=== PATIENT | female | born 1960 | race Caucasian/White ===

== ENCOUNTER → 2017-04-10 | Outpatient (CLI) | payer BC ==
--- NOTE | 2017-04-10 14:17 | WWHP ---
DATE OF SERVICE: 04/10/2017 CHIEF COMPLAINT: The patient is here for her routine gynecologic exam and mammogram. HPI: This is a 56-year-old G4, P2-0-2-3 with an LMP of 2012. The patient previously saw Dr. Dickens for her gynecologic care. It has been about 2 years since her last pelvic exam but about 3 years since her last Pap smear. The patient is without gynecologic complaints and denies any postmenopausal bleeding. She has had occasional hot flashes, but these are much improved from the past. PAST MEDICAL HISTORY: Seasonal allergies. MEDICATIONS: 1. Ludivina D [id number] 1 daily p.r.n. 2. Multivitamin daily. 3. Fish oil supplement 2 per day. 4. Calcium supplement 2 daily. Allergies to AMOXICILLIN which caused a rash. PAST SURGICAL HISTORY: Bilateral breast implants at age 44, neck surgery at age 19 following an injury, colonoscopy multiple times and her most recent one was about 2014. PAST OB HISTORY: Two vaginal deliveries, one was with a set of twins and they were at full term. She had 2 spontaneous abortions. 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 SOCIAL HISTORY: She smokes about 10 cigarettes per day and rolls them herself. She has about 2 to 4 alcoholic drinks per day and denies drug use. She is retired and previously worked for [employer]. 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 She is and is not seeing anybody at this time and is not sexually active. FAMILY HISTORY: Several people have colon cancer including mother, grandmother and great grandparents. She denies family history of cancer of the breast, uterus or ovaries. Father had an NC, maternal grandmother had coronary artery disease. Father also has diabetes. REVIEW OF SYSTEMS: Weight has been stable. RESPIRATORY: Occasional allergy symptoms. She denies cardiac or GI problems. PHYSICAL EXAM: Blood pressure 101/70. Height 5 feet 1 inch. Weight 107 pounds. Temperature 98.2, pulse 67. This is a well-developed, well-nourished white female who is alert and oriented x3 in no acute distress. HEENT is within normal limits. NECK: Supple without mass or thyromegaly. CHEST AND LUNGS: Clear to auscultation. HEART: Regular rate and rhythm. Breasts are consistent with bilateral implants. There are no masses or tenderness. Axillary exam is negative for adenopathy. BACK: Negative for CVA tenderness. ABDOMEN: Soft, nontender, without palpable masses. PELVIC EXAM: External genitalia reveals minimal atrophy without lesions. Cervix and vagina also reveal minimal atrophy without lesions. There is no evidence of prolapse. The uterus is midposition, nongravid size and nontender. There are no palpable adnexal masses or tenderness. Rectovaginal exam is negative for mass or tenderness and is negative for occult blood. EXTREMITIES: Nontender. IMPRESSION: A 56-year-old menopausal female with normal gynecologic exam. PLAN: 1. Pap smear was performed. 2. Self breast examination was discussed. 3. Mammogram will be done today. 4. Osteoporosis prevention was discussed. 5. I have recommended that she try to quit smoking and we have discussed several reasons why she should do this. 6. She will return in one year.
--- NOTE | 2017-04-11 07:25 | MM ---
Reason for exam: screening (asymptomatic). Last mammogram was performed 1 year and 10 months ago. History: Patient is postmenopausal. Saline implants in both breasts, 2004. Took hormonal contraceptives for 15 years beginning at age 22. Physical Findings: Nurse did not find any significant physical abnormalities on exam. MG Screening Mammo Implant/CAD Bilateral CC, MLO, and ID view(s) were taken. Prior study comparison: June 14, 2015, bilateral MG diagnostic mammo w CAD KATHIA. June 10, 2014, bilateral MG diagnostic mammo w CAD KATHIA. June 05, 2013, CAD bilateral diagnostic mammogram. The breast tissue is heterogeneously dense. This may lower the sensitivity of mammography. There is no discrete abnormality. Bilateral implants. ASSESSMENT: Negative, BI-RAD 1 RECOMMENDATION: Routine screening mammogram of both breasts in 1 year.
== END | disposition home or self-care (01) ==
LOC: WWCWWP 09:12
PROVIDERS: ATTEND Obstetrics & Gynecology
DX: Z12.31 Encounter for screening mammogram for malignant neoplasm of breast (principal)

== ENCOUNTER → 2018-09-02 | Outpatient (CLI) | payer BC ==
[2018-09-02 13:47] VITALS: BP 107/74; PULSE 99; TEMP 97.8; BMI 17.4
--- NOTE | 2018-09-02 14:17 | P.HPOB ---
History of Present Illness H&P Date: 09/02/18 Chief Complaint: The patient is here for her routine gynecologic exam and mammogram. This is a 58-year-old with an LMP of 2013. The patient is without gynecologic complaints and denies any postmenopausal bleeding. Review of Systems The patient has lost 15 pounds over the 17 months. She denies respiratory, cardiac, or G.I. problems. Past Medical History Additional Past Medical History / Comment(s): Seasonal allergies. 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 History of Any Multi-Drug Resistant Organisms: None Reported Past Surgical History: Breast Surgery (Bilateral implants age 44), Orthopedic Surgery (Neck surgery following injury at age 19) Additional Past Surgical History / Comment(s): Multiple colonoscopies and the most recent was in 2014. Past Psychological History: No Psychological Hx Reported Smoking Status: Current every day smoker (10 cigarettes per day, self rolled) Past Alcohol Use History: None Reported Additional Past Alcohol Use History / Comment(s): Previous daily alcohol intake until November 2017 when she had a traffic violation for impaired driving. She denies alcohol use since November 2017. Past Drug Use History: None Reported Additional History: She is and is not seeing anybody at this time. She works at the [employer] in [place]. Her son is mentally impaired. - Past Family History Mother Family Medical History: Cancer (colon cancer) Additional Family Medical History / Comment(s): Grandmother and great grandparents had colon cancer. Grandmother had CAD. Father Family Medical History: Diabetes Mellitus, Myocardial Infarction ([place]) Medications and Allergies Home Medications Medication Instructions Recorded Confirmed Type Calcium Carbonate [Calcium] 600 mg PO 09/02/18 History Fexofenadine/Pseudoephedrine PO DAILY 09/02/18 History [Ludivina-D 24 Hour Tablet] Fish Oil/Dha/Epa [Fish Oil 1,200 cap PO DAILY 09/02/18 History mg Fish Oil] Multivitamin [Multivitamins Adult tab PO DAILY 09/02/18 History Gummies] Allergies Allergy/AdvReac Type Severity Reaction Status Date / Time amoxicillin AdvReac Intermediate Rash/Hives Unverified 09/02/18 13:43 Exam Vital Signs Temp Pulse BP 09/02/18 13:43 97.8 F 99 107/74 Intake and Output 1009/02/18 09/02/18 22:59 06:59 14:59 Other: Weight 41.73 kg Height 5'1", BMI 17.4. This is a well-developed well-nourished thin white female who is alert and oriented times 3 in no acute distress. HEENT: Within normal limits. NECK: Supple without mass or thyromegaly. CHEST AND LUNGS: Clear to auscultation. HEART: Regular rate and rhythm. BREASTS: Are without mass or discharge. They are consistent with bilateral implants. AXILLARY EXAM: Negative for adenopathy. BACK: Negative for CVA tenderness. ABDOMEN: Soft, nontender, without palpable masses. PELVIC EXAM: Normal external genitalia with mild atrophy. Cervix and vagina appear normal mild atrophy. There is no unusual discharge. There is no evidence of prolapse. The uterus is midposition, nongravid size and nontender. There are no palpable adnexal masses or tenderness. RECTAL EXAM: rectovaginal exam is negative for mass or tenderness and is negative for occult blood. EXTREMITIES: Nontender. IMPRESSION: 1. 58-year-old menopausal female with normal gynecologic exam. 2. Bilateral breast implants with normal breast exam. PLAN: 1. pap Smear was deferred since she had a normal one last year. 2. Self breast awareness was discussed with the patient. 3. Screening mammogram will be done today. 4. Osteoporosis prevention was discussed. 5. The patient is scheduled for screening colonoscopy next week. 6. She will return in one year.
--- NOTE | 2018-09-03 11:50 | MM ---
Reason for exam: screening (asymptomatic). Last mammogram was performed 1 year and 5 months ago. History: Patient is postmenopausal. Saline implants in both breasts, 2004. Took hormonal contraceptives for 15 years beginning at age 22. Physical Findings: A clinical breast exam by your physician is recommended on an annual basis and results should be correlated with mammographic findings. MG 3D Screen Mammo Imp/Cad Bilateral CC and MLO view(s) were taken. Prior study comparison: April 10, 2017, bilateral MG screening mammo implant/CAD. June 14, 2015, bilateral MG diagnostic mammo w CAD KATHIA. The breast tissue is heterogeneously dense. This may lower the sensitivity of mammography. Finding: There is a 3 mm high density, oval mass in the 3 o'clock position of the left breast consistent with probable node. New finding since April 10, 2017 and June 14, 2015. ASSESSMENT: Incomplete: need additional imaging evaluation, BI-RAD 0 RECOMMENDATION: Ultrasound of the left breast. [facility] will attempt to contact patient to return for ultrasound.
== END ==
LOC: WWCWWP 13:23
PROVIDERS: ATTEND Obstetrics & Gynecology
DX: Z12.31 Encounter for screening mammogram for malignant neoplasm of breast (principal); Z98.82 Breast implant status
CPT/HCPCS: 77063; 77067

== ENCOUNTER → 2018-09-04 | Outpatient (CLI) | payer BC ==
--- NOTE | 2018-09-04 10:36 | USB ---
Reason for exam: additional evaluation requested from abnormal screening. History: Patient is postmenopausal. Saline implants in both breasts, 2003. Took hormonal contraceptives for 15 years beginning at age 22. Physical Findings: Nurse Summary: 0.5cm movable nodule (nurse dw). US Breast Workup Limited LT Left limited breast ultrasound including focal area of concern, retroareolar and axilla demonstrates a 0.5 x 0.2 x 0.6cm questionable valve at 1 o'clock. These results were verbally communicated with the patient and result sheet given to the patient on 09/04/18. ASSESSMENT: Negative, BI-RAD 1 RECOMMENDATION: Return to routine screening mammogram schedule for both breasts.
== END | disposition home or self-care (01) ==
LOC: RADUSWWP 08:49
PROVIDERS: ATTEND Obstetrics & Gynecology
DX: R92.8 Other abnormal and inconclusive findings on diagnostic imaging of breast (principal)

== ENCOUNTER → 2019-09-30 | Outpatient (CLI) | payer BC ==
[2019-09-30 09:07] VITALS: BP 134/93; PULSE 101; RESP 18; TEMP 98; BMI 18.1
--- NOTE | 2019-09-30 09:46 | P.HPOB ---
History of Present Illness H&P Date: 09/30/19 Chief Complaint: The patient is here for her routine gynecologic exam and ma mmogram. This is a 59-year-old with an LMP of 2013. The patient is without gynecologic complaints and denies any postmenopausal bleeding. Review of Systems The patient has gained 4 pounds over the last year. She denies respiratory, cardiac, or G.I. problems. The patient fractured her wrist after a fall. Past Medical History Additional Past Medical History / Comment(s): Seasonal allergies. Chronic back problems. 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 History of Any Multi-Drug Resistant Organisms: None Reported Past Surgical History: Breast Surgery, Orthopedic Surgery Additional Past Surgical History / Comment(s): Bilateral breast implants age 44. Neck surgery following an injury at age 19. Multiple colonoscopies and the most recent was in 2014. Past Psychological History: No Psychological Hx Reported Smoking Status: Current every day smoker (10 cigarettes per day, self rolled.) Past Alcohol Use History: Occasional (3 per week) Additional Past Alcohol Use History / Comment(s): Previous daily alcohol intake until November 2017 when she had a traffic violation for impaired driving. She denies alcohol use since November 2017. Past Drug Use History: None Reported Additional History: She is and is not seeing anybody at this time. She works at [employer] in [place]. Her son was mentally impaired and murdered in 2019. - Past Family History Mother Family Medical History: Cancer Additional Family Medical History / Comment(s): Colon cancer. Grandmother and great grandparents had colon cancer. Grandmother had CAD. Father Family Medical History: Diabetes Mellitus, Myocardial Infarction ([place]) Medications and Allergies Home Medications Medication Instructions Recorded Confirmed Type Calcium Carbonate [Calcium] 600 mg PO DAILY 09/02/18 09/30/19 History Fexofenadine/Pseudoephedrine 1 tab PO DAILY PRN 09/02/18 09/30/19 History [Ludivina-D 24 Hour Tablet] Fish Oil/Dha/Epa [Fish Oil 1,200 1 cap PO DAILY 09/02/18 09/30/19 History mg Fish Oil] Multivitamin [Multivitamins Adult 1 tab PO DAILY 09/02/18 09/30/19 History Gummies] Allergies Allergy/AdvReac Type Severity Reaction Status Date / Time amoxicillin AdvReac Intermediate Rash/Hives Unverified 09/30/19 09:08 Exam Vital Signs Temp Pulse Resp BP 09/30/19 09:03 98.0 F 101 H 18 134/93 Intake and Output 09/29/19 09/30/19 09/30/19 22:59 06:59 14:59 Other: Weight 43.545 kg Height 5 feet 1 inch, weight 96 pounds, BMI 18.1. This is a well-developed well-nourished white female who is alert and oriented times 3 in no acute distress. HEENT: Within normal limits. NECK: Supple without mass or thyromegaly. CHEST AND LUNGS: Clear to auscultation. HEART: Regular rate and rhythm. BREASTS: Are without mass or discharge. Exam is consistent with bilateral breast implants. AXILLARY EXAM: Negative for adenopathy. BACK: Negative for CVA tenderness. ABDOMEN: Soft, nontender, without palpable masses. PELVIC EXAM: Normal external genitalia with mild to moderate atrophy. Cervix and vagina appear normal is mild to moderate atrophy. There is no unusual discharge. There is no evidence of prolapse. The uterus is midposition, nongravid size and nontender. There are no palpable adnexal masses or tenderness. RECTAL EXAM: Rectovaginal exam is negative for mass or tenderness and is negative for occult blood. EXTREMITIES: Nontender. IMPRESSION: 1. 59-year-old menopausal female with normal gynecologic exam. 2. Recent wrist fracture following a fall. Increased risk for osteoporosis. PLAN: 1. Pap smear was performed. 2. Self breast awareness was discussed with the patient. 3. Screening mammogram will be done today. 4. Osteoporosis prevention was discussed. I have stressed the importance of adequate calcium, vitamin D and regular exercise. Recommended amounts of calcium and vitamin D were also discussed. I have recommended bone density screening because of her history of a wrist fracture. The order slip was given to the patient for this. 5. She was advised to return in one year for her annual well woman exam.
--- NOTE | 2019-09-30 13:38 | MM ---
Reason for exam: screening (asymptomatic). Last mammogram was performed 1 year and 1 month ago. History: Patient is postmenopausal. Saline implants in both breasts, 2004. Took hormonal contraceptives for 15 years beginning at age 22. Physical Findings: A clinical breast exam by your physician is recommended on an annual basis and results should be correlated with mammographic findings. MG 3D Screen Mammo Imp/Cad Bilateral CC, MLO, and ID view(s) were taken. Prior study comparison: September 02, 2018, bilateral MG 3d screen mammo imp/cad. April 10, 2017, bilateral MG screening mammo implant/CAD. The breast tissue is extremely dense which could obscure a lesion on mammography. Benign appearing bilateral calcifications. No suspicious abnormality. Bilateral retropectoral saline implants. No significant changes when compared with prior studies. ASSESSMENT: Benign, BI-RAD 2 RECOMMENDATION: Routine screening mammogram of both breasts in 1 year.
== END | disposition home or self-care (01) ==
LOC: WWCWWP 08:54
PROVIDERS: ATTEND Obstetrics & Gynecology
DX: Z12.31 Encounter for screening mammogram for malignant neoplasm of breast (principal); Z98.82 Breast implant status
CPT/HCPCS: 77063; 77067

== ENCOUNTER 2020-07-18 11:43 | Emergency (ER) | payer BC ==
[2020-07-18 12:03] VITALS: RESP 18; TEMP 98
[2020-07-18] MEDS ORDERED: SODIUM CHLORIDE 0.9% 1,000 ML IV STA (12:15)
[2020-07-18 13:03] LABS: Basophils # (A) 0.1 k/uL (0-0.2); Basophils % (A) 1 %; Eosinophils # (A) 0.2 k/uL (0-0.7); Eosinophils % (A) 3 %; HCT 43.1 % (34.0-46.0); HGB 14.1 gm/dL (11.4-16.0); Lymphocytes # (A) 2.3 k/uL (1.0-4.8); Lymphocytes % (A) 30 %; MCHC 32.8 g/dL (31.0-37.0); MCV 94.6 fL (80.0-100.0); Mean Platelet Volume 7.2; Monocytes # (A) 0.3 k/uL (0-1.0); Monocytes % (A) 4 %; Neutrophils # (A) 4.7 k/uL (1.3-7.7); Neutrophils % (A) 62 %; Platelet Count 204 k/uL (150-450); RBC 4.56 m/uL (3.80-5.40); RDW 12.4 % (11.5-15.5); WBC 7.6 k/uL (3.8-10.6)
[2020-07-18 13:10] LABS: Amorphous Sediment,Urine Rare /hpf; Appearance,Urine Turbid (Clear); Bacteria,Urine Rare /hpf; Bilirubin,Urine Negative (Negative); Blood,Urine Moderate (Negative); Color,Urine Yellow; Glucose,Urine (UA) Negative (Negative); Ketones,Urine Negative (Negative); Leukocyte Esterase,Urine Negative (Negative); Mucus,Urine Rare /hpf; Nitrite,Urine Negative (Negative); PH, Urine 7.5 (5.0-8.0); Protein,Urine Negative (Negative); RBC,Urine 18 /hpf (0-5); Specific Gravity,Urine 1.017 (1.001-1.035); Squamous Epithelial Cell,Urine 1 /hpf (0-4); Urobilinogen,Urine <2.0 mg/dL (<2.0)
[2020-07-18 13:13] LABS: ALT 20 U/L (4-34); AST 40 U/L (14-36); African American GFR (CKD) >90 (>60 ml/min/1.73 sqM); Albumin 4.6 g/dL (3.5-5.0); Alkaline Phosphatase 69 U/L (38-126); Amylase 56 U/L (30-110); Anion Gap 7 mmol/L; Blood Urea Nitrogen 16 mg/dL (7-17); Calcium 9.7 mg/dL (8.4-10.2); Carbon Dioxide 26 mmol/L (22-30); Chloride 105 mmol/L (98-107); Glucose 120 mg/dL (74-99); Non-African American GFR(CKD) >90 (>60 ml/min/1.73 sqM); Sodium 138 mmol/L (137-145); Total Bilirubin 1.1 mg/dL (0.2-1.3); Total Protein 7.1 g/dL (6.3-8.2)
--- NOTE | 2020-07-18 13:59 | ED ---
General Adult HPI - General Chief complaint: Abdominal Pain Stated complaint: Light headed, side pain Time Seen by Provider: 07/18/20 12:12 Source: patient, RN notes reviewed Mode of arrival: ambulatory Limitations: no limitations - History of Present Illness Initial comments: 60-year-old female with a past medical history of seasonal ALLERGIES, chronic back problems presents to the emergency room for a chief complaint of abdominal discomfort. Patient reports that about 3 days ago she started to have nausea. Patient states that during an episode associated started abdominal cramping. She also had diarrhea starting yesterday. Patient has had chills and just not felt well overall. She is able to tolerate oral intake. Patient is concerned she could have Covid. She does not have any exposures but was by her friend that this could be a symptom of Covid. Patient has no other complaints at this time including shortness of breath, chest pain, abdominal pain, vomiting, headache, or visual changes. - Related Data Home Medications Medication Instructions Recorded Confirmed Calcium Carbonate [Calcium] 600 mg PO DAILY 09/02/18 09/30/19 Fexofenadine/Pseudoephedrine 1 tab PO DAILY PRN 09/02/18 09/30/19 [Ludivina-D 24 Hour Tablet] Fish Oil/Dha/Epa [Fish Oil 1,200 1 cap PO DAILY 09/02/18 09/30/19 mg Fish Oil] RX: Multivitamin [Multivitamins 1 tab PO DAILY 09/02/18 09/30/19 Adult Gummies] Previous Rx's Medication Instructions Recorded Ondansetron [Zofran ODT] 4 mg PO Q8HR PRN #15 tab 07/18/20 Allergies Allergy/AdvReac Type Severity Reaction Status Date / Time amoxicillin AdvReac Intermediate Rash/Hives Unverified 09/30/19 09:08 Review of Systems ROS Statement: Those systems with pertinent positive or pertinent negative responses have been documented in the HPI. ROS Other: All systems not noted in ROS Statement are negative. Past Medical History Additional Past Medical History / Comment(s): Seasonal allergies. Chronic back problems. History of Any Multi-Drug Resistant Organisms: None Reported Past Surgical History: Breast Surgery, Orthopedic Surgery Additional Past Surgical History / Comment(s): Bilateral breast implants age 44. Neck surgery following an injury at age 19. Multiple colonoscopies and the most recent was in 2014. Past Psychological History: No Psychological Hx Reported Past Alcohol Use History: Occasional Past Drug Use History: None Reported - Past Family History Mother Family Medical History: Cancer Additional Family Medical History / Comment(s): Colon cancer. Grandmother and great grandparents had colon cancer. Grandmother had CAD. Father Family Medical History: Diabetes Mellitus, Myocardial Infarction ([place]) General Exam Limitations: no limitations General appearance: alert, in no apparent distress Head exam: Present: atraumatic, normocephalic, normal inspection Eye exam: Present: normal appearance, PERRL, EOMI. Absent: scleral icterus, conjunctival injection, periorbital swelling ENT exam: Present: normal exam, mucous membranes moist Neck exam: Present: normal inspection, full ROM. Absent: tenderness, meningismus, lymphadenopathy Respiratory exam: Present: normal lung sounds bilaterally. Absent: respiratory distress, wheezes, rales, rhonchi, stridor Cardiovascular Exam: Present: regular rate, normal rhythm, normal heart sounds. Absent: systolic murmur, diastolic murmur, rubs, gallop, clicks GI/Abdominal exam: Present: soft, normal bowel sounds. Absent: distended, tenderness, guarding, rebound, rigid Neurological exam: Present: alert Course Vital Signs 07/18/20 11:59 Temperature 98.0 F Pulse Rate 98 Respiratory 18 Rate Blood Pressure 117/78 O2 Sat by Pulse 996 H Oximetry Medical Decision Making - Medical Decision Making Vitals are stable. CBC CMP unremarkable. Patient does not have any abdominal tenderness whatsoever. Urinalysis does show 18 red blood cells. I did discuss this with patient and she will follow-up with her doctor for repeat urinalysis. Patient is requesting testing for Covid. States that is actually the reason she is here. Patient will follow up on these results. She will follow-up with her doctor and return for any worsening symptoms. - Lab Data Result diagrams: 07/18/20 12:41 07/18/20 12:41 Lab Results 07/18/20 07/18/20 07/18/20 Range/Units 12:41 12:41 12:41 WBC 7.6 (3.8-10.6) k/uL RBC 4.56 (3.80-5.40) m/uL Hgb 14.1 (11.4-16.0) gm/dL Hct 43.1 (34.0-46.0) % MCV 94.6 (80.0-100.0) fL MCH 31.0 (25.0-35.0) pg MCHC 32.8 (31.0-37.0) g/dL RDW 12.4 (11.5-15.5) % Plt Count 204 (150-450) k/uL Neutrophils % 62 % Lymphocytes % 30 % Monocytes % 4 % Eosinophils % 3 % Basophils % 1 % Neutrophils # 4.7 (1.3-7.7) k/uL Lymphocytes # 2.3 (1.0-4.8) k/uL Monocytes # 0.3 (0-1.0) k/uL Eosinophils # 0.2 (0-0.7) k/uL Basophils # 0.1 (0-0.2) k/uL Sodium 138 (137-145) mmol/L Potassium 5.0 (3.5-5.1) mmol/L Chloride 105 (98-107) mmol/L Carbon Dioxide 26 (22-30) mmol/L Anion Gap 7 mmol/L BUN 16 (7-17) mg/dL Creatinine 0.52 (0.52-1.04) mg/dL Est GFR (CKD-EPI)AfAm >90 (>60 ml/min/1.73 sqM) Est GFR (CKD-EPI)NonAf >90 (>60 ml/min/1.73 sqM) Glucose 120 H (74-99) mg/dL Calcium 9.7 (8.4-10.2) mg/dL Total Bilirubin 1.1 (0.2-1.3) mg/dL AST 40 H (14-36) U/L ALT 20 (4-34) U/L Alkaline Phosphatase 69 (38-126) U/L Total Protein 7.1 (6.3-8.2) g/dL Albumin 4.6 (3.5-5.0) g/dL Amylase 56 (30-110) U/L Lipase 105 (23-300) U/L Urine Color Yellow Urine Appearance Turbid H (Clear) Urine pH 7.5 (5.0-8.0) Ur Specific [place] 1.017 (1.001-1.035) Urine Protein Negative (Negative) Urine Glucose (UA) Negative (Negative) Urine Ketones Negative (Negative) Urine Blood Moderate H (Negative) Urine Nitrite Negative (Negative) Urine Bilirubin Negative (Negative) Urine Urobilinogen <2.0 (<2.0) mg/dL Ur Leukocyte Esterase Negative (Negative) Urine RBC 18 H (0-5) /hpf Ur Squamous Epith Cells 1 (0-4) /hpf Amorphous Sediment Rare H (None) /hpf Urine Bacteria Rare H (None) /hpf Urine Mucus Rare H (None) /hpf Disposition Clinical Impression: Nausea vomiting and diarrhea, Hematuria Disposition: HOME SELF-CARE Condition: Fair Instructions (If sedation given, give patient instructions): Acute Diarrhea (ED), Acute Nausea and Vomiting (ED) Additional Instructions: Please drink plenty of fluids. Take Zofran as needed for nausea. Follow-up with your doctor in one to 2 days. Follow-up on-call with results. Return here to the emergency room if you have any worsening symptoms. Prescriptions: Ondansetron [Zofran ODT] 4 mg PO Q8HR PRN #15 tab PRN Reason: Nausea Is patient prescribed a controlled substance at d/c from ED?: No Referrals: Manda Dominguez MD [REFERRING] - 1-2 days Time of Disposition: 14:17
[2020-07-18 14:24] VITALS: BP 122/70; PULSE 82
== END 2020-07-18 14:23 | disposition home or self-care (01) ==
LOC: EC 11:43
DX: R11.2 Nausea with vomiting, unspecified (principal); R19.7 Diarrhea, unspecified; R31.9 Hematuria, unspecified; R10.9 Unspecified abdominal pain; Z20.828 Contact with and (suspected) exposure to other viral communicable diseases; Z98.82 Breast implant status
CPT/HCPCS: 36415; 80053; 82150; 83690; 85025; 81001; 99284; 96360; U0003

== ENCOUNTER → 2022-08-28 | Outpatient (CLI) | payer BC ==
[2022-08-28 10:57] VITALS: BP 119/75; PULSE 85; RESP 17; TEMP 98.2
--- NOTE | 2022-08-28 11:47 | P.HPOB ---
History of Present Illness H&P Date: 08/28/22 Chief Complaint: The patient is here for her routine gynecologic exam and ma mmogram. This is a 70-year-old 023 with an LMP of 2013. The patient is without gynecologic complaints and denies any postmenopausal bleeding. Review of Systems She has gained about 3 pounds over the past 3 years. She denies respiratory or cardiac problems. GI: Occasional constipation and occasional diarrhea. Past Medical History Additional Past Medical History / Comment(s): Seasonal allergies. Chronic back problems. History of Any Multi-Drug Resistant Organisms: None Reported Past Surgical History: Breast Surgery, Orthopedic Surgery Additional Past Surgical History / Comment(s): Bilateral breast implants age 44. Neck surgery following an injury at age 19. Multiple colonoscopies and the most recent was in 2014. Past Psychological History: No Psychological Hx Reported Smoking Status: Current every day smoker (About 5 cigarettes per day. She rolls her own.) Past Alcohol Use History: Occasional (About 10 beers per week.) Additional Past Alcohol Use History / Comment(s): Previous daily alcohol intake until November 2017 when she had a traffic violation for impaired driving. Past Drug Use History: None Reported Additional History: She is and is not seeing anybody at this time. She has not been sexually active since prior to 2019. She is currently not working outside of the home. Her son was mentally impaired and murdered in 2019. - Past Family History Mother Family Medical History: Cancer Additional Family Medical History / Comment(s): Colon cancer. Grandmother and great grandparents had colon cancer. Grandmother had CAD. Father Family Medical History: Diabetes Mellitus, Myocardial Infarction (MT) Medications and Allergies Home Medications Medication Instructions Recorded Confirmed Type Calcium Carbonate [Calcium] 600 mg PO DAILY 09/02/18 08/28/22 History Fexofenadine/Pseudoephedrine 1 tab PO DAILY PRN 09/02/18 08/28/22 History [Ludivina-D 24 Hour Tablet] Fish Oil/Dha/Epa [Fish Oil 1,200 1 cap PO DAILY 09/02/18 08/28/22 History mg Fish Oil] Multivitamin [Multivitamins Adult 1 tab PO DAILY 09/02/18 08/28/22 History Gummies] Ondansetron [Zofran ODT] 4 mg PO Q8HR PRN #15 tab 07/18/20 08/28/22 Rx L.acidoph,Paracasei, B.lactis 1 cap PO DAILY 08/28/22 08/28/22 History [Probiotic] Magnesium Oxide [Magnesium] 500 mg PO DAILY 08/28/22 08/28/22 History Allergies Allergy/AdvReac Type Severity Reaction Status Date / Time amoxicillin AdvReac Intermediate Rash/Hives Unverified 08/28/22 10:51 Exam Vital Signs Temp Pulse Resp BP Pulse Ox 08/28/22 10:54 98.2 F 85 17 119/75 100 Intake and Output 08/27/22 08/28/22 08/28/22 22:59 06:59 14:59 Other: Weight 44.906 kg Height 5 foot 1 inch, weight 99 pounds, BMI 18.7. This is a well-developed well-nourished white female who is alert and oriented times 3 in no acute distress. HEENT: Within normal limits. NECK: Supple without mass or thyromegaly. CHEST AND LUNGS: Clear to auscultation. HEART: Regular rate and rhythm. BREASTS: Are without mass or discharge. Breasts are consistent with bilateral breast implants. AXILLARY EXAM: Negative for adenopathy. BACK: Negative for CVA tenderness. ABDOMEN: Soft, nontender, without palpable masses. PELVIC EXAM: Normal external genitalia with mild atrophy. Vagina reveals a small area of raised leukoplakia on the right side in the posterior region near the introitus. This is noticed when the labia are spread apart. This lesion me asures 4 x 5 mm and is white. This lesion is nontender and non-erythematous. There are no other vaginal or vulvar lesions noted. The cervix appears normal with mild atrophy. There is no unusual discharge. There is no evidence of prolapse. The uterus is midposition, nongravid size and nontender. There are no palpable adnexal masses or tenderness. RECTAL EXAM: Rectovaginal exam is negative for mass or tenderness and is negative for occult blood. EXTREMITIES: Nontender. IMPRESSION: 1. 62-year-old menopausal female with a vaginal lesion measuring 4 x 5 mm on the right side near the introitus. Differential diagnosis will include condyloma, dysplastic tissue or other vaginal neoplasm. PLAN: 1. Pap smear coated test was performed. 2. Self breast awareness was discussed with the patient. We have also discussed symptoms associated with inflammatory breast cancer. 3. Screening mammogram will be done today. 4. The patient has been scheduled for a removal of the vaginal growth on 08/29/2022. This will be sent for pathological evaluation. 5. She has completed her Covid vaccination series but has not received a booster. She is aware that boosters are available and she will consider this but 6.Osteoporosis prevention was discussed. I have stressed the importance of adequate calcium, vitamin D and regular exercise. Recommended amounts of calcium and vitamin D were also discussed. She states she did once have some type of bone density test done at a screening fair. I have recommended bone density testing on the lumbar spine and hips. The order slip was given to the patient for this. 7. She was advised to return in one year for her annual well woman exam.
--- NOTE | 2022-08-28 12:45 | MM ---
Reason for Exam: Screening (asymptomatic). Last mammogram was performed 2 year(s) and 11 month(s) ago. Patient History: Menarche at age 13. First Full-Term at age 25. Postmenopausal. Patient has history of breast feeding. Hormonal Contraceptives for 15 years from age 22 until age 48. 2004, Bilateral Implants. Risk Values: Shannon 5 year model risk: 1.4%. NCI Lifetime model risk: 7.2%. Prior Study Comparison: 06/10/2014 Bilateral Diagnostic Mammogram, [facility]. 06/14/2015 Bilateral Diagnostic Mammogram, [facility] 04/10/2017 Bilateral Screening Mammogram, [facility]. 09/02/2018 Bilateral Screening Mammogram, [facility]. 09/30/2019 Bilateral Screening Mammogram, [facility]. Tissue Density: The breast tissue is heterogeneously dense. This may lower the sensitivity of mammography. Findings: Analyzed By CAD. Bilateral subpectoral breast implants are redemonstrated. Single benign-appearing rounded dystrophic calcification in the bilateral breasts are now seen. Stable small well-circumscribed left breast upper outer aspect is presumed benign lymph node. Possible new 5 mm obscured mass right breast upper aspect middle MLO implant displaced image 4 not clearly seen on CC images for additional images. Overall Assessment: Incomplete: need additional imaging evaluation, BI-RAD 0 Management: Special View Mammogram of the right breast. Return for additional spot implant displaced MLO tomogram imaging and implant displaced tomogram through lateral image.. Electronically signed and approved by: Armando Michelle M.D.
== END ==
LOC: WWCWWP 10:46
PROVIDERS: ATTEND Obstetrics & Gynecology
DX: Z12.31 Encounter for screening mammogram for malignant neoplasm of breast (principal); R92.1 Mammographic calcification found on diagnostic imaging of breast; N89.8 Other specified noninflammatory disorders of vagina; F17.210 Nicotine dependence, cigarettes, uncomplicated; Z88.1 Allergy status to other antibiotic agents
CPT/HCPCS: 77063; 77067

== ENCOUNTER → 2022-08-29 | Day surgery (SDC) | payer BC ==
[2022-08-29 12:22] VITALS: BP 119/78; PULSE 86; RESP 17; TEMP 98.7
--- NOTE | 2022-08-29 12:55 | P.PCN ---
Date of Procedure: 08/29/22 Preoperative Diagnosis: Vaginal growth of uncertain behavior. Postoperative Diagnosis: Same. Procedure(s) Performed: Removal of vaginal growth. Anesthesia: local Surgeon: Carlitos To Estimated Blood Loss (ml): 1 Pathology: other (vaginal growth) Condition: stable Disposition: same day Indications for Procedure: This was a 70-year-old menopausal female who was found to have a white vaginal growth on the right aspect of the vagina near the introitus. The growth measured approximate 4 x 5 mm. This was asymptomatic and found on routine exam. Operative Findings: The white growth was noted on the vaginal mucosa near the inner aspect of the right labia majora. It measured 4 x 5 mm and was raised and white in appearance. Description of Procedure: We discussed the procedure as well as possible risks and complications including bleeding and infection. All questions were answered. Preprocedure blood pressure was 119/78, pulse 86, temperature 97.8 and pulse oximeter 100%. Following obtaining consent for the procedure and after performing a timeout, the patient was placed in the lithotomy position. The area was prepped with Betadine solution. Approximately 1 mL of 1% lidocaine was used for local anesthesia. Following determination of adequate anesthesia, the lesion was excised and sent for pathological examination. Silver nitrate was used to make the site hemostatic. A small amount of antibiotic ointment was applied. One piece of clean gauze was left between the labia. The patient tolerated the procedure well. Postprocedure blood pressure was 123/81 and a pulse was 79. The patient was instructed to have limited activities including no sexual activity, no running and nothing in the vagina. The patient was instructed to place a small amount of Neosporin on the area twice daily until healed. She was also instructed to call if problems such as heavy bleeding, unusual pain, fever, or problems.
== END ==
LOC: WWCWWP 11:36
PROVIDERS: ATTEND Obstetrics & Gynecology
DX: D07.1 Carcinoma in situ of vulva (principal); F17.200 Nicotine dependence, unspecified, uncomplicated; Z80.0 Family history of malignant neoplasm of digestive organs
CPT/HCPCS: 88305

== ENCOUNTER → 2022-08-29 | Outpatient (CLI) | payer BC ==
--- NOTE | 2022-08-29 11:48 | XR ---
EXAMINATION TYPE: XR abdomen 2V DATE OF EXAM: 08/29/2022 8:36 AM INDICATION: Patient age:Female; 62 years old; Reason for study: CONSTIPATION PAIN BLOATING; COMPARISON: None. TECHNIQUE: Two views of the abdomen were obtained. FINDINGS: The bowel gas pattern is nonspecific without dilated loops of small or large bowel. There i s no evidence for organomegaly or pneumoperitoneum. The osseous structures are intact. No abnormal calcifications are present. Fecal material and gas are demonstrated throughout the colon and rectum. Multilevel disc degeneration changes throughout the spine. IMPRESSION: Nonspecific bowel gas pattern without radiographic evidence for acute process.
== END | disposition home or self-care (01) ==
LOC: RADXRMAIN 11:12
PROVIDERS: ATTEND Nurse Practitioner Family
DX: K59.00 Constipation, unspecified (principal)
CPT/HCPCS: 74019

== ENCOUNTER → 2022-09-20 | Outpatient (CLI) | payer BC ==
--- NOTE | 2022-09-20 14:04 | USB ---
Patient History: Menarche at age 13. First Full-Term at age 25. Postmenopausal. Patient has history of breast feeding. Hormonal Contraceptives for 15 years from age 22 until age 48. 2004, Bilateral Implants. Risk Values: Shannon 5 year model risk: 1.4%. NCI Lifetime model risk: 7.2%. Technique: Method: Targeted. Prior Study Comparison: 09/02/2018 Bilateral Screening Mammogram, [facility]. 09/30/2019 Bilateral Screening Mammogram, [facility]. 08/28/2022 Bilateral MG 3D screening mammo w/cad, [facility]. Findings: The upper section of the breast of the right breast, the axilla of the right breast and the retroareolar of the right breast were scanned. Targeted ultrasound right breast superiorly 10:00 to 2:00 including the subareolar region and axilla. At the 11:00 position, 3 cm from the nipple, there is an oval, circumscribed hypoechoic lesion measuring 6 x 5 x 4 mm. No posterior shadowing or internal vascularity. Possible mammographic correlate. At the 1:00 position, there is a round lesion with similar characteristics measuring 4 x 3 x 3 mm. Given the very small size and imaging characteristics which suggest that these may be benign, three-month follow-up is recommended. If any suspicious changes are noted at that time, biopsy can be pursued. Overall Assessment: Probably benign, BI-RAD 3 Management: Diagnostic Breast Ultrasound of the right breast in 6 months. 10:00 to 2:00 for the suspected mammographic correlate. Two small nodules measuring 6 mm and 4 mm are seen. These may represent debris-filled cysts. Biopsy can be pursued if any suspicious changes develop on the follow-up exam. Patient should continue monthly self breast exams. These results should not preclude additional follow-up of suspicious palpable abnormalities. Results were given to the patient verbally at the time of exam. Electronically signed and approved by: Jessie Barton M.D. Radiologist
--- NOTE | 2022-09-20 15:19 | MM ---
Reason for Exam: Additional evaluation requested from abnormal screening. Last screening mammogram was performed less than 1 month ago. Patient History: Menarche at age 13. First Full-Term at age 25. Postmenopausal. Patient has history of breast feeding. Hormonal Contraceptives for 15 years from age 22 until age 48. 2004, Bilateral Implants. Risk Values: Shannon 5 year model risk: 1.4%. NCI Lifetime model risk: 7.2%. Tissue Density: Right: The breast tissue is heterogeneously dense. This may lower the sensitivity of mammography. Findings: Analyzed By CAD. 5 mm isodense circumscribed nodule persists anterior superior aspect of the Spot 3-D MLO view. Not clearly seen on the spot 3-D CC or 3-D lateral views. Overall Assessment: Incomplete: need additional imaging evaluation, BI-RAD 0 Management: Diagnostic Breast Ultrasound of the right breast. Superior portion 10:00 to 2:00. Electronically signed and approved by: Jessie Barton M.D. Radiologist
--- NOTE | 2022-09-20 17:25 | BD ---
EXAMINATION TYPE: Axial Bone Density DATE OF EXAM: 09/20/2022 CLINICAL HISTORY: 62 years year old Female. ICD-10 CODE: Z78.0 POSTMENOPAUSAL STATUS (ASYMPTOMATIC) Height: 5 FT Weight: 101 FRAX RISK QUESTIONS: Alcohol (3 or more units per day): NO Family History (Parent hip fracture): NO Glucocorticoids (More than 3mos): NO (Ex: prednisone, prednisolone, methylprednisolone, dexamethasone, and hydrocortisone). History of Fracture in Adulthood: YES Secondary Osteoporosis: 1. Type 1 Diabetes: NO 2. Hyperthyroidism: NO 3. Menopause before 45: NO 4. Malnutrition: NO 5. Chronic liver disease: NO Rheumatoid Arthritis: NO Current Tobacco Use: YES RISK FACTORS HISTORY OF: History of Wrist Fracture: KATHIA WRIST When: 2019 LEFT, RT 1978 Surgery to Spine/Hip(right/left)/Wrist (right/left): NO Family History of Osteoporosis: NO Active: YES Diet low in dairy products/other sources of calcium: NO Postmenopausal woman: YES Take estrogen and/or progesterone medications: NO Lost more than 2 inches in height since high school: NO Frequent falls: NO Poor Health: GOOD Hyperparathyroidism: NO Adrenal Insufficiency: NO MEDICATIONS: Additional Medications: NONE Additional History: EXAM MEASUREMENTS: Bone mineral densitometry was performed using the [employer] System. Bone mineral density as measured about the Lumbar spine is: ----- L1-L4(G/cm2): 1.131 T Score Values are as follows: ----- L1: -1.2 ----- L2: -0.6 ----- L3: -0.1 ----- L4: 0.0 ----- L1-L4: -0.4 BASELINE Bone mineral density about the R hip (g/cm2): 0.761 Bone mineral density about the L hip (g/cm2): 0.763 T Score values are as follows: -----R Neck: -2.0 -----L Neck: -2.0 -----R Total: -1.9 -----L Total: -2.3 BASELINE FRAX%s: The graph provided illustrates a 14.4 % chance for a major osteoporotic fx and a 2.1 % chance for the hips probability for fx in 10 years time. IMPRESSION: Osteopenia (T Score between -2.5 and -1). There is slightly increased risk of fracture and the patient may be considered for treatment. Re-Screen 2-5 years. NOTE: T-SCORE=SD OF THE YOUNG ADULT MEAN.
== END | disposition home or self-care (01) ==
LOC: RADBDWWP 12:24
PROVIDERS: ATTEND Obstetrics & Gynecology
DX: M81.8 Other osteoporosis without current pathological fracture (principal); Z78.0 Asymptomatic menopausal state; R92.8 Other abnormal and inconclusive findings on diagnostic imaging of breast
CPT/HCPCS: 77061; 77065; 77080

== ENCOUNTER 2025-05-10 12:17 | Observation (INO) | payer BC ==
--- NOTE | 2025-05-10 13:27 | ED ---
GI Bleed HPI - General Chief complaint: GI Bleed Stated complaint: Vaginal bleeding Time Seen by Provider: 05/10/25 12:34 Source: patient, RN notes reviewed Mode of arrival: ambulatory Limitations: no limitations - History of Present Illness Initial comments: This is a 64-year-old female with history of constipation and numerous colonoscopies presenting for blood in stool occurring earlier this morning. Patient states she has recently been constipated, having a brick red color stool at 0200 after vomiting this morning with subsequent lower abdominal cramping and passage of pure bright red blood multiple times. Patient endorses significant family history of colon cancer, having colonoscopies in 2019 and 2 colonoscopies at the end of 2020 and beginning of 2021 for removal of some large polyps. Patient endorses use of ibuprofen with some relief of abdominal cramping. Denies use of blood thinners. Denies fever, chills, dizziness, dyspnea, chest pain, nausea, hematemesis, melena, urinary symptoms. MD complaint: blood streaked stool, gross hematochezia Onset/Timin -: hour(s) Quality: painless, cramping Consistency: intermittent Improves with: bowel movement Associated Symptoms: vomiting - Related Data Home Medications Medication Instructions Recorded Confirmed No Known Home Medications 05/10/25 05/10/25 Allergies Allergy/AdvReac Type Severity Reaction Status Date / Time amoxicillin AdvReac Intermediate Rash/Hives Verified 05/10/25 15:03 Review of Systems ROS Statement: Those systems with pertinent positive or pertinent negative responses have been documented in the HPI. ROS Other: All systems not noted in ROS Statement are negative. Past Medical History Additional Past Medical History / Comment(s): Seasonal allergies. Chronic back problems. History of Any Multi-Drug Resistant Organisms: None Reported Past Surgical History: Breast Surgery, Orthopedic Surgery Additional Past Surgical History / Comment(s): Bilateral breast implants age 44. Neck surgery following an injury at age 19. Multiple colonoscopies and the most recent was in 2014. Past Psychological History: No Psychological Hx Reported Smoking Status: Current every day smoker Past Alcohol Use History: Occasional Past Drug Use History: None Reported - Past Family History Mother Family Medical History: Cancer Additional Family Medical History / Comment(s): Colon cancer. Grandmother and great grandparents had colon cancer. Grandmother had CAD. Father Family Medical History: Diabetes Mellitus, Myocardial Infarction ([place]) General Exam Limitations: no limitations General appearance: alert, in no apparent distress Head exam: Present: atraumatic, normocephalic, normal inspection Eye exam: Present: normal appearance, PERRL, EOMI. Absent: scleral icterus, conjunctival injection, periorbital swelling ENT exam: Present: normal exam, mucous membranes moist Neck exam: Present: normal inspection. Absent: tenderness, meningismus, lymph adenopathy Respiratory exam: Present: normal lung sounds bilaterally. Absent: respiratory distress, wheezes, rales, rhonchi, stridor, accessory muscle use Cardiovascular Exam: Present: regular rate, normal rhythm, normal heart sounds. Absent: systolic murmur, diastolic murmur, rubs, gallop, clicks GI/Abdominal exam: Present: soft, tenderness (Patient notes some mild right abdominal tenderness without guarding), hyperactive bowel sounds. Absent: distended, guarding, rebound, rigid Rectal exam: Present: normal inspection, normal rectal tone, heme (-) stool. Absent: black stool, bloody stool, fecal impaction, hemorrhoids, mass, tenderness Extremities exam: Present: normal inspection, full ROM, normal capillary refill. Absent: tenderness, pedal edema, joint swelling, calf tenderness Back exam: Present: normal inspection Neurological exam: Present: alert, oriented X3, CN II-XII intact Psychiatric exam: Present: normal affect, normal mood Skin exam: Present: warm, dry, intact, normal color. Absent: rash Course Vital Signs 05/10/25 05/10/25 05/10/25 12:50 14:55 16:50 Temperature 98.0 F Pulse Rate 88 77 82 Respiratory 17 18 Rate Blood Pressure 149/79 151/94 O2 Sat by Pulse 99 99 87 L Oximetry 05/10/25 18:24 Temperature Pulse Rate 69 Respiratory 17 Rate Blood Pressure 133/81 O2 Sat by Pulse 98 Oximetry Medical Decision Making - Medical Decision Making Was pt. sent in by a medical professional or institution (, PA, [employer], urgent care, hospital, or fdc...) When possible be specific @ -No Did you speak to anyone other than the patient for history (EMS, parent, family, police, friend...)? What history was obtained from this source @ -No Did you review nursing and triage notes (agree or disagree)? Why? @ -I reviewed and agree with nursing and triage notes Were old charts reviewed (outside hosp., previous admission, EMS record, old EKG, old radiological studies, urgent care reports/EKG's, fdc records)? Report findings @ -No old charts were reviewed Differential Diagnosis (chest pain, altered mental status, abdominal pain women, abdominal pain men, vaginal bleeding, weakness, fever, dyspnea, syncope, headache, dizziness, GI bleed, back pain, seizure, CVA, palpatations, mental health, musculoskeletal)? @ -Differential GI Bleed: Esophageal varices, aortoenteric fistula, Debora-Lee, gastritis, peptic ulcer disease, diverticulosis, inflammatory bowel disease, hemorrhoids, fissure, colitis, malignancy, Meckel's diverticulum, this is not meant to be an all- inclusive list. EKG interpreted by me (3pts min.). @ -Not done X-rays interpreted by me (1pt min.). @ -None done CT interpreted by me (1pt min.). @ -None done U/S interpreted by me (1pt. min.). @ -None done What testing was considered but not performed or refused? (CT, X-rays, U/S, labs)? Why? @ -None What meds were considered but not given or refused? Why? @ -None Did you discuss the management of the patient with other professionals (professionals i.e. , PA, [employer], lab, RT, psych nurse, group social worker, press hand, teacher, chief green officer, community case manager)? Give summary @ -Spoke to Dr. Galdamez who agreed to patient admission and consult to Dr. Lomas. Was smoking cessation discussed for >3mins.? @ -No Was critical care preformed (if so, how long)? @ -No Were there social determinants of health that impacted care today? How? (Homelessness, low income, unemployed, alcoholism, drug addiction, transportation, low edu. Level, literacy, decrease access to med. care, correction, rehab)? @ -No Was there de-escalation of care discussed even if they declined (Discuss DNR or withdrawal of care, Hospice)? DNR status @ -No What co-morbidities impacted this encounter? (DM, HTN, Smoking, COPD, CAD, Ca ncer, CVA, ARF, Chemo, Hep., AIDS, mental health diagnosis, sleep apnea, morbid obesity)? @ -None Was patient admitted / discharged? Hospital course, mention meds given and route, prescriptions, significant lab abnormalities, going to OR and other pertinent info. @ -Patient initially provided IV normal saline. Lab work including lactic acid and lipase unremarkable. Stool occult blood negative. Patient notes she is still having ongoing BRBPR. Spoke to Dr. Galdamez who agreed to patient admission and consult to Dr. Lomas. Discussed patient with Dr. Mccrary. Undiagnosed new problem with uncertain prognosis? @ -No Drug Therapy requiring intensive monitoring for toxicity (Heparin, Nitro, Insulin, Cardizem)? @ -No Were any procedures done? @ -No Diagnosis/symptom? @ -Hematochezia Acute, or Chronic, or Acute on Chronic? @ -Acute Uncomplicated (without systemic symptoms) or Complicated (systemic symptoms)? @ -Uncomplicated Side effects of treatment? @ -No Exacerbation, Progression, or Severe Exacerbation? @ -No Poses a threat to life or bodily function? How? (Chest pain, USA, [place], pneumonia, PE, COPD, DKA, ARF, appy, cholecystitis, CVA, Diverticulitis, Homicidal, Suici leonard, threat to staff... and all critical care pts) @ -GI bleed, possibility for exsanguination - Lab Data Result diagrams: 05/10/25 18:02 05/10/25 13:42 Lab Results 05/10/25 05/10/25 05/10/25 Range/Units 13:42 13:42 13:42 WBC 9.99 (4.50-10.00) 10*3/uL RBC 4.61 (4.10-5.20) 10*6/uL Hgb 14.7 (12.0-15.0) g/dL Hct 42.6 (37.2-46.3) % MCV 92.4 (80.0-97.0) fL MCH 31.9 (27.0-32.0) pg MCHC 34.5 (32.0-37.0) g/dL Plt Count 256 (140-440) 10*3/uL MPV 9.8 (9.5-12.2) fL Immature Gran % (Auto) 0.1 % Neutrophils % 75.4 % Lymphocytes % 18.2 % Monocytes % 5.6 % Eosinophils % 0.2 % Basophils % 0.5 % Immature Gran # 0.01 (0.00-0.04) 10*3/uL Neutrophils # 7.53 (1.80-7.70) 10*3/uL Lymphocytes # 1.82 (0.90-5.00) 10*3/uL Monocytes # 0.56 (0.20-1.00) 10*3/uL Eosinophils # 0.02 L (0.04-0.35) 10*3/uL Basophils # 0.05 (0.00-0.10) 10*3/uL PT 10.8 (10.0-12.5) sec INR 1.0 (<1.2) APTT 22.9 (22.0-30.0) sec Sodium 138 (137-145) mmol/L Potassium 4.0 (3.5-5.1) mmol/L Chloride 106 (98-107) mmol/L Carbon Dioxide 23 (22-30) mmol/L Anion Gap 9 mmol/L BUN 13 (7-17) mg/dL Creatinine 0.45 L (0.52-1.04) mg/dL Est GFR (CKD-EPI)AfAm >90 (>60 ml/min/1.73 sqM) Est GFR (CKD-EPI)NonAf >90 (>60 ml/min/1.73 sqM) Glucose 108 H (74-99) mg/dL Plasma Lactic Acid Diego (0.7-2.0) mmol/L Calcium 9.8 (8.4-10.2) mg/dL Total Bilirubin 0.8 (0.2-1.3) mg/dL AST 25 (14-36) U/L ALT 20 (4-34) U/L Alkaline Phosphatase 102 (38-126) U/L Total Protein 6.9 (6.3-8.2) g/dL Albumin 4.6 (3.5-5.0) g/dL Lipase 115 (23-300) U/L Stool Occult Blood (Negative) 05/10/25 05/10/25 05/10/25 Range/Units 13:42 15:09 18:02 WBC 7.23 (4.50-10.00) 10*3/uL RBC 4.39 (4.10-5.20) 10*6/uL Hgb 13.8 (12.0-15.0) g/dL Hct 40.9 (37.2-46.3) % MCV 93.2 (80.0-97.0) fL MCH 31.4 (27.0-32.0) pg MCHC 33.7 (32.0-37.0) g/dL Plt Count 179 (140-440) 10*3/uL MPV 9.9 (9.5-12.2) fL Immature Gran % (Auto) 0.3 % Neutrophils % 60.9 % Lymphocytes % 30.0 % Monocytes % 6.8 % Eosinophils % 1.4 % Basophils % 0.6 % Immature Gran # 0.02 (0.00-0.04) 10*3/uL Neutrophils # 4.41 (1.80-7.70) 10*3/uL Lymphocytes # 2.17 (0.90-5.00) 10*3/uL Monocytes # 0.49 (0.20-1.00) 10*3/uL Eosinophils # 0.10 (0.04-0.35) 10*3/uL Basophils # 0.04 (0.00-0.10) 10*3/uL PT (10.0-12.5) sec INR (<1.2) APTT (22.0-30.0) sec Sodium (137-145) mmol/L Potassium (3.5-5.1) mmol/L Chloride (98-107) mmol/L Carbon Dioxide (22-30) mmol/L Anion Gap mmol/L BUN (7-17) mg/dL Creatinine (0.52-1.04) mg/dL Est GFR (CKD-EPI)AfAm (>60 ml/min/1.73 sqM) Est GFR (CKD-EPI)NonAf (>60 ml/min/1.73 sqM) Glucose (74-99) mg/dL Plasma Lactic Acid Diego 1.1 (0.7-2.0) mmol/L Calcium (8.4-10.2) mg/dL Total Bilirubin (0.2-1.3) mg/dL AST (14-36) U/L ALT (4-34) U/L Alkaline Phosphatase (38-126) U/L Total Protein (6.3-8.2) g/dL Albumin (3.5-5.0) g/dL Lipase (23-300) U/L Stool Occult Blood Negative (Negative) Disposition Clinical Impression: Hematochezia Disposition: ADMITTED IP TO THIS [facility] Condition: Fair Instructions (If sedation given, give patient instructions): Gastrointestinal Bleeding (ED) Referrals: Gerson Galdamez DO [Primary Care Provider] - 1-2 days Time of Disposition: 17:40 Decision Date: 05/10/25 Decision Time: 17:40
[2025-05-10 13:47] LABS: Basophils # (A) 0.05 10*3/uL (0.00-0.10); Basophils % (A) 0.5 %; Eosinophils # (A) 0.02 10*3/uL (0.04-0.35); Eosinophils % (A) 0.2 %; HCT 42.6 % (37.2-46.3); HGB 14.7 g/dL (12.0-15.0); Lymphocytes # (A) 1.82 10*3/uL (0.90-5.00); Lymphocytes % (A) 18.2 %; MCH 31.9 pg (27.0-32.0); MCHC 34.5 g/dL (32.0-37.0); MCV 92.4 fL (80.0-97.0); Mean Platelet Volume 9.8 fL (9.5-12.2); Monocytes # (A) 0.56 10*3/uL (0.20-1.00); Monocytes % (A) 5.6 %; Neutrophils # (A) 7.53 10*3/uL (1.80-7.70); Neutrophils % (A) 75.4 %; Platelet Count 256 10*3/uL (140-440); RBC 4.61 10*6/uL (4.10-5.20); RDW 12.3 % (11.5-14.5); WBC 9.99 10*3/uL (4.50-10.00)
[2025-05-10 13:56] LABS: Partial Thromboplastin Time 22.9 sec (22.0-30.0); Prothrombin Time 10.8 sec (10.0-12.5)
[2025-05-10] MEDS: SODIUM CHLORIDE 0.9% 1,000 ML IV STA (14:01)
[2025-05-10 14:03] LABS: ALT 20 U/L (4-34); AST 25 U/L (14-36); African American GFR (CKD) >90 (>60 ml/min/1.73 sqM); Albumin 4.6 g/dL (3.5-5.0); Alkaline Phosphatase 102 U/L (38-126); Anion Gap 9 mmol/L; Blood Urea Nitrogen 13 mg/dL (7-17); Calcium 9.8 mg/dL (8.4-10.2); Carbon Dioxide 23 mmol/L (22-30); Chloride 106 mmol/L (98-107); Glucose 108 mg/dL (74-99); Lipase 115 U/L (23-300); Non-African American GFR(CKD) >90 (>60 ml/min/1.73 sqM); Sodium 138 mmol/L (137-145); Total Bilirubin 0.8 mg/dL (0.2-1.3); Total Protein 6.9 g/dL (6.3-8.2)
--- NOTE | 2025-05-10 14:42 | XR ---
EXAMINATION TYPE: XR KUB DATE OF EXAM: 05/10/2025 2:31 PM COMPARISON: None. CLINICAL INDICATION: Female, 64 years old with history of GI bleed, TECHNIQUE: XR KUB view(s) obtained. FINDINGS: There is a normal bowel gas pattern. No mass effect is evident. No free air is evident. No differenti al air-fluid levels are evident. Psoas margins are normal. No organomegaly is present. IMPRESSION: 1. Unremarkable [facility], , 05/10/2025 2:40 PM
[2025-05-10] MEDS ORDERED: NALOXONE 0.4 MG/ML 1 ML VIAL IV PRN (16:37)
[2025-05-10] MEDS ORDERED: ONDANSETRON 4 MG/2 ML VIAL IVP PRN (16:37)
[2025-05-10] MEDS ORDERED: ACETAMINOPHEN TAB 325 MG TAB PO PRN (16:37)
[2025-05-10 18:04] LABS: Basophils # (A) 0.04 10*3/uL (0.00-0.10); Basophils % (A) 0.6 %; Eosinophils % (A) 1.4 %; HCT 40.9 % (37.2-46.3); HGB 13.8 g/dL (12.0-15.0); Lymphocytes # (A) 2.17 10*3/uL (0.90-5.00); MCH 31.4 pg (27.0-32.0); MCHC 33.7 g/dL (32.0-37.0); MCV 93.2 fL (80.0-97.0); Mean Platelet Volume 9.9 fL (9.5-12.2); Monocytes # (A) 0.49 10*3/uL (0.20-1.00); Monocytes % (A) 6.8 %; Neutrophils # (A) 4.41 10*3/uL (1.80-7.70); Neutrophils % (A) 60.9 %; Platelet Count 179 10*3/uL (140-440); RBC 4.39 10*6/uL (4.10-5.20); RDW 12.5 % (11.5-14.5); WBC 7.23 10*3/uL (4.50-10.00)
[2025-05-10] MEDS: FLUTICASONE NASAL 50MCG/SPRAY 16GM BTL EA NOSTRIL SCH (20:46)
[2025-05-10] MEDS: MORPHINE SULFATE 4 MG/ML SYRINGE IV PRN (22:08)
[2025-05-11 02:49] LABS: Basophils # (A) 0.03 10*3/uL (0.00-0.10); Basophils % (A) 0.4 %; Eosinophils # (A) 0.15 10*3/uL (0.04-0.35); Eosinophils % (A) 2.1 %; HCT 37.3 % (37.2-46.3); HGB 12.5 g/dL (12.0-15.0); Lymphocytes # (A) 2.49 10*3/uL (0.90-5.00); Lymphocytes % (A) 34.8 %; MCH 31.6 pg (27.0-32.0); MCHC 33.5 g/dL (32.0-37.0); MCV 94.2 fL (80.0-97.0); Mean Platelet Volume 9.5 fL (9.5-12.2); Monocytes # (A) 0.51 10*3/uL (0.20-1.00); Monocytes % (A) 7.1 %; Neutrophils # (A) 3.96 10*3/uL (1.80-7.70); Neutrophils % (A) 55.5 %; Platelet Count 181 10*3/uL (140-440); RBC 3.96 10*6/uL (4.10-5.20); RDW 12.4 % (11.5-14.5); WBC 7.15 10*3/uL (4.50-10.00)
--- NOTE | 2025-05-11 10:35 | P.GSCN ---
History of Present Illness Consult date: 05/11/25 History of present illness: CHIEF COMPLAINT: GI bleed HISTORY OF PRESENT ILLNESS: This is a 64-year-old female who presented to [facility] with complaints of bright red blood per rectum that started yesterday morning. Patient reports that she has been having crampy abdominal pain with passage of blood from the rectum as well as blood clots. She did have an episode of vo miting yesterday with no blood in the emesis. Patient does have a history of constipation. No prior history of GI bleed. She does report having hemorrhoids in the past. Does have a family history of multiple family members with colon cancer, specifically her mother. Hemoglobin on admission 14 has trended down to 12. She did have another bloody bowel movement this morning in the ER. She reports that she is not passing any stool with the bleeding. Her last colonoscopy was in 2021 with large colon polyps in which she went to [facility] to have them removed. She denies being on any blood thinners. Surgical service consulted for GI bleed. PAST MEDICAL HISTORY: See below PAST SURGICAL HISTORY: See below MEDICATIONS: See below ALLERGIES: See below SOCIAL HISTORY: No illicit drug use. REVIEW OF SYSTEMS: CONSTITUTIONAL: Denies fever or chills. HEENT: Denies blurred vision, vision changes, or eye pain. Denies hemoptysis CARDIOVASCULAR: Denies chest pain or pressure. RESPIRATORY: No shortness of breath. GASTROINTESTINAL: See HPI for pertinent findings HEMATOLOGIC: Denies bleeding disorders. GENITOURINARY: Denies any blood in urine or increased urinary frequency. SKIN: Denies pruitis. Denies rash. PHYSICAL EXAM: VITAL SIGNS: Reviewed GENERAL: Well-developed in no acute distress. HEENT: No sclera icterus. Extraocular movements grossly intact. Moist buccal mucosa. Head is atraumatic, normocephalic. No nasal drainage. ABDOMEN: Soft. Nondistended. Nontender NEUROLOGIC: Alert and oriented. Cranial nerves II through XII grossly intact. LABORATORY DATA: WBC 7.15 Hgb 14.7 down to 12.5 platelets 181 Sodium is 138 potassium 4.0 creatinine 0.45 Lactic acid 1.1 Stool for occult blood negative IMAGING: KUB x-ray unremarkable ASSESSMENT: 1. Acute lower GI bleed with bright red blood per rectum 2. History of colon polyps PLAN: - Patient scheduled for colonoscopy - Start Clear liquid diet - Continue to monitor hemoglobin - Continue to monitor for any signs or symptoms of bleeding Physician Electro Mechanical Assembler note has been reviewed by physician. Signing provider agrees with the documented findings, assessment, and plan of care. Attestation Patient seen and examined at bedside on 05/11/2025. Presented with chief complaint of GI bleed. Believes that she has had bright red blood per rectum. She has not had any bleeding since admission. During discussion she also believes that she has blood in her urine. She is not on any anticoagulation. Hemoglobin initially at 14.7, down to 12.5 today. Stool for occult blood is negative. Likely plan for colonoscopy for further evaluation. Urology consulted as well for hematuria. Nestor Lomas, Past Medical History Additional Past Medical History / Comment(s): Seasonal allergies. Chronic back problems. History of Any Multi-Drug Resistant Organisms: None Reported Past Surgical History: Breast Surgery, Orthopedic Surgery Additional Past Surgical History / Comment(s): Bilateral breast implants age 44. Neck surgery following an injury at age 19. Multiple colonoscopies and the most recent was in 2014. Past Psychological History: No Psychological Hx Reported Smoking Status: Current every day smoker Past Alcohol Use History: Occasional Past Drug Use History: None Reported - Past Family History Mother Family Medical History: Cancer Additional Family Medical History / Comment(s): Colon cancer. Grandmother and great grandparents had colon cancer. Grandmother had CAD. Father Family Medical History: Diabetes Mellitus, Myocardial Infarction ([place]) Medications and Allergies Home Medications Medication Instructions Recorded Confirmed Type No Known Home Medications 05/10/25 05/10/25 History Allergies Allergy/AdvReac Type Severity Reaction Status Date / Time amoxicillin AdvReac Intermediate Rash/Hives Verified 05/10/25 15:03 Surgical - Exam Osteopathic Statement: *. No significant issues noted on an osteopathic str uctural exam other than those noted in the History and Physical/Consult. Vital Signs Temp Pulse Resp BP Pulse Ox 98.0 F 88 17 149/79 99 05/10/25 12:50 05/10/25 12:50 05/10/25 12:50 05/10/25 12:50 05/10/25 12:50 Results - Labs 05/11/25 02:16 05/12/25 06:37 Abnormal Lab Results - Last 24 Hours (Table) 05/10/25 05/10/25 05/11/25 Range/Units 13:42 13:42 02:16 RBC 3.96 L (4.10-5.20) 10*6/uL Eosinophils # 0.02 L (0.04-0.35) 10*3/uL Creatinine 0.45 L (0.52-1.04) mg/dL Glucose 108 H (74-99) mg/dL Diabetes panel 05/10/25 Range/Units 13:42 Sodium 138 (137-145) mmol/L Potassium 4.0 (3.5-5.1) mmol/L Chloride 106 (98-107) mmol/L Carbon Dioxide 23 (22-30) mmol/L BUN 13 (7-17) mg/dL Creatinine 0.45 L (0.52-1.04) mg/dL Glucose 108 H (74-99) mg/dL Calcium 9.8 (8.4-10.2) mg/dL AST 25 (14-36) U/L ALT 20 (4-34) U/L Alkaline Phosphatase 102 (38-126) U/L Total Protein 6.9 (6.3-8.2) g/dL Albumin 4.6 (3.5-5.0) g/dL Calcium panel 05/10/25 Range/Units 13:42 Calcium 9.8 (8.4-10.2) mg/dL Albumin 4.6 (3.5-5.0) g/dL Pituitary panel 05/10/25 Range/Units 13:42 Sodium 138 (137-145) mmol/L Potassium 4.0 (3.5-5.1) mmol/L Chloride 106 (98-107) mmol/L Carbon Dioxide 23 (22-30) mmol/L BUN 13 (7-17) mg/dL Creatinine 0.45 L (0.52-1.04) mg/dL Glucose 108 H (74-99) mg/dL Calcium 9.8 (8.4-10.2) mg/dL Adrenal panel 05/10/25 Range/Units 13:42 Sodium 138 (137-145) mmol/L Potassium 4.0 (3.5-5.1) mmol/L Chloride 106 (98-107) mmol/L Carbon Dioxide 23 (22-30) mmol/L BUN 13 (7-17) mg/dL Creatinine 0.45 L (0.52-1.04) mg/dL Glucose 108 H (74-99) mg/dL Calcium 9.8 (8.4-10.2) mg/dL Total Bilirubin 0.8 (0.2-1.3) mg/dL AST 25 (14-36) U/L ALT 20 (4-34) U/L Alkaline Phosphatase 102 (38-126) U/L Total Protein 6.9 (6.3-8.2) g/dL Albumin 4.6 (3.5-5.0) g/dL
[2025-05-11] MEDS: SODIUM CHLORIDE 0.9% 1,000 ML IV SCH (10:50)
[2025-05-11] MEDS: PANTOPRAZOLE 40 MG/10 ML VIAL IVP SCH (11:58)
[2025-05-11] MEDS: NICOTINE 14MG/24HR PATCH TRANSDERM SCH (11:59)
--- NOTE | 2025-05-11 15:52 | P.HPIM ---
History of Present Illness H&P Date: 05/11/25 Chief Complaint: Rectal bleeding This is a 64-year-old female with past medical history significant for lifelong constipation , family history of colon cancer including her mother,nicotine dependence, daily alcohol use-1 can of Alex beer light at night and multiple other medical issues presented to the ER with cramping abdominal pain, bright red rectal bleeding with blood clots accompanied by nausea, vomiting .lightheadedness, dizziness since early yesterday morning at 230. Denies hemoptysis or hematemesis. Denies NSAID use but does report she did have 2 ibuprofen 200 mg yesterday for the abdominal cramping. Proceeded to have another bloody bowel movement this morning in the ER. on admission hemoglobin 14, decreased to 12.5. Reports multiple colonoscopies last -2021 with polyps-refer to [facility] for removal of. Reports she normally has a bowel movement twice a week; over the last week she has been having 1 daily. KUB unremarkable .stool for occult blood negative. Lactic acid 1.1, electrolytes and renal function stable. Receiving IV fluid hydration. Evaluated by general surgery and patient is scheduled for colonoscopy on , 05/13/2025. Review of Systems ROS Statement: Those systems with pertinent positive or pertinent negative responses have been documented in the HPI. ROS Other: All systems not noted in ROS Statement are negative. Past Medical History Additional Past Medical History / Comment(s): Seasonal allergies. Chronic back problems. History of Any Multi-Drug Resistant Organisms: None Reported Past Surgical History: Breast Surgery, Orthopedic Surgery Additional Past Surgical History / Comment(s): Bilateral breast implants age 44. Neck surgery following an injury at age 19. Multiple colonoscopies and the most recent was in 2014. Past Psychological History: No Psychological Hx Reported Smoking Status: Current every day smoker Past Alcohol Use History: Occasional Past Drug Use History: None Reported - Past Family History Mother Family Medical History: Cancer Additional Family Medical History / Comment(s): Colon cancer. Grandmother and great grandparents had colon cancer. Grandmother had CAD. Father Family Medical History: Diabetes Mellitus, Myocardial Infarction ([place]) Medications and Allergies Home Medications Medication Instructions Recorded Confirmed Type Fluticasone Nasal [place] [Flonase 2 spray EA NOSTRIL DAILY ml 05/13/25 Rx Nasal [place]] Nicotine 14Mg/24Hr Patch [Habitrol] 1 patch TRANSDERM DAILY #30 patch 05/13/25 Rx Allergies Allergy/AdvReac Type Severity Reaction Status Date / Time amoxicillin AdvReac Intermediate Rash/Hives Verified 05/10/25 15:03 Physical Exam Vitals: Vital Signs Pulse Resp BP Pulse Ox 05/11/25 12:00 85 20 123/83 94 L 05/11/25 10:52 73 20 118/75 93 L 05/11/25 08:07 100 20 118/75 94 L 05/11/25 04:37 81 18 117/69 93 L 05/11/25 00:17 85 16 118/81 95 05/10/25 18:24 69 17 133/81 98 05/10/25 16:50 82 18 151/94 87 L 05/10/25 14:55 77 99 PHYSICAL EXAM: VITAL SIGNS: [Reviewed] GENERAL: Alert and oriented x 3, HEENT: Atraumatic, normocephalic ,conjunctivae normal. eyes normal. NECK: Supple, no JVD. No thyroid enlargement. No LNs CARDIOVASCULAR: S1, S2 regular.. No murmur RESPIRATION: Breath sounds diminished in the bases. No rhonchi or crackles. No bronchial breathing. ABDOMEN: Soft, nondistended, nontender . No guarding. no masses palpable. No ascites, No hepatosplenomegaly.Bowel sounds heard. LEGS: No edema. no swelling PSYCHIATRY: Alert and oriented X3, mood and affect normal. NERVOUS SYSTEM: Cranial N 2-12 grossly normal. No focal deficits. Strength and sensation grossly intact.. Skin: Warm and dry, no rash Results CBC & Chem 7: 05/13/25 07:16 05/13/25 07:16 Labs: Abnormal Lab Results - Last 24 Hours (Table) 05/10/25 05/11/25 Range/Units 13:42 02:16 RBC 3.96 L (4.10-5.20) 10*6/uL Creatinine 0.45 L (0.52-1.04) mg/dL Glucose 108 H (74-99) mg/dL Assessment and Plan Assessment: Acute lower GI bleed Symptomatic hemodynamic instability with lightheadedness, dizziness accompanying rectal bleeding. Daily alcohol use, 1 can of beer q. night History of colon polyps Nicotine dependence Plan: Continue on current medication regime ,monitoring and symptomatic treatment. Continue close monitoring of hemoglobin repeat labs ordered for a.m. PPI ordered for GI prophylaxis.evaluated by general surgery. Clear liquid diet, prep tomorrow with colonoscopy on . Smoking cessation, alcohol abstine nce reinforced. Nicotine patch ordered. The impression and plan of care has been dictated as directed. : I performed a history and examination of this patient, discussed the same with the dictator. I agree with the dictator's note ,documented as a scribe. Any additional findings or plans will be noted.
[2025-05-11 17:54] LABS: Appearance,Urine Clear (Clear); Bacteria,Urine Rare /hpf; Bilirubin,Urine Negative (Negative); Blood,Urine Moderate (Negative); Color,Urine Colorless; Glucose,Urine (UA) Negative (Negative); Ketones,Urine 2+ (Negative); Leukocyte Esterase,Urine Negative (Negative); Mucus,Urine Rare /hpf; Nitrite,Urine Negative (Negative); Protein,Urine Negative (Negative); RBC,Urine 10 /hpf (0-5); Specific Gravity,Urine 1.005 (1.001-1.035); Squamous Epithelial Cell,Urine <1 /hpf (0-4); Urobilinogen,Urine <2.0 mg/dL (<2.0); WBC,Urine <1 /hpf (0-5)
--- NOTE | 2025-05-12 06:37 | P.GSCN ---
History of Present Illness Consult date: 05/11/25 Reason for Consult: Hematuria Requesting physician: Flavia Schwartz History of present illness: The patient is a 64-year-old white female admitted with rectal bleeding. She is tentatively scheduled to undergo colonoscopy on May 13, 2025. He has undergone multiple colonoscopies in the past. She is uncertain whether or not she is experiencing hematuria, but she was told she had microhematuria during a hospitalization in 2019. I am consulted for this reason. She denies dysuria and flank pain. She denies any prior history of UTIs or urolithiasis. Review of Systems - Genitourinary Genitourinary: Reports as per HPI Past Medical History Additional Past Medical History / Comment(s): Seasonal allergies. Chronic back problems. History of Any Multi-Drug Resistant Organisms: None Reported Past Surgical History: Breast Surgery, Orthopedic Surgery Additional Past Surgical History / Comment(s): Bilateral breast implants age 44. Neck surgery following an injury at age 19. Multiple colonoscopies and the most recent was in 2014. Past Psychological History: No Psychological Hx Reported Smoking Status: Current every day smoker Past Alcohol Use History: Occasional Past Drug Use History: None Reported - Past Family History Mother Family Medical History: Cancer Additional Family Medical History / Comment(s): Colon cancer. Grandmother and great grandparents had colon cancer. Grandmother had CAD. Father Family Medical History: Diabetes Mellitus, Myocardial Infarction (DC) Medications and Allergies Home Medications Medication Instructions Recorded Confirmed Type No Known Home Medications 05/10/25 05/10/25 History Allergies Allergy/AdvReac Type Severity Reaction Status Date / Time amoxicillin AdvReac Intermediate Rash/Hives Verified 05/10/25 15:03 Surgical - Exam Vital Signs Temp Pulse Resp BP Pulse Ox 98.0 F 88 17 149/79 99 05/10/25 12:50 05/10/25 12:50 05/10/25 12:50 05/10/25 12:50 05/10/25 12:50 - General well developed, well nourished, no distress - Respiratory normal respiratory effort - Abdomen Soft, non-distended, no palpable mass. Mild lower abdominal tenderness is noted, without guarding or rebound. - Psychiatric oriented to time, oriented to person, oriented to place, speech is normal, memory intact Results - Labs 05/11/25 02:16 05/10/25 13:42 Abnormal Lab Results - Last 24 Hours (Table) 05/11/25 Range/Units 13:15 Urine Ketones 2+ H (Negative) Urine Blood Moderate H (Negative) Urine RBC 10 H (0-5) /hpf Urine Bacteria Rare H (None) /hpf Urine Mucus Rare H (None) /hpf Assessment and Plan (1) Microhematuria Current Visit: Yes Status: Acute Code(s): R31.29 - OTHER MICROSCOPIC HEMATURIA SNOMED Code(s): 470743322 Plan: Urinalysis shows the urine to be yellow in color, with 10 RBC/hpf. It is thus apparent that the bleeding she is seeing is indeed not urinary in origin. It is difficult to determine whether she is truly experiencing microhematuria, as it is possible that the blood noted on urinalysis is secondary to the rectal bleeding. I have recommended to the patient that she undergo evaluation and treatment for the rectal bleeding. Once this has resolved, I would suggest that urinalysis be repeated and that she undergo a formal microhematuria evaluation if persistent microhematuria is noted. I have given her my card and would be glad to evaluate her as an outpatient if warranted. Please notify me if I can be of any further assistance.
[2025-05-12 07:25] LABS: African American GFR (CKD) >90 (>60 ml/min/1.73 sqM); Anion Gap 8 mmol/L; Blood Urea Nitrogen 4 mg/dL (7-17); Calcium 8.8 mg/dL (8.4-10.2); Carbon Dioxide 18 mmol/L (22-30); Chloride 112 mmol/L (98-107); Glucose 105 mg/dL (74-99); Non-African American GFR(CKD) >90 (>60 ml/min/1.73 sqM); Potassium 3.5 mmol/L (3.5-5.1); Sodium 138 mmol/L (137-145)
[2025-05-12 09:14] LABS: HGB 13.2 g/dL (12.0-15.0); MCH 31.7 pg (27.0-32.0); MCHC 33.8 g/dL (32.0-37.0); MCV 93.8 fL (80.0-97.0); Mean Platelet Volume 9.8 fL (9.5-12.2); Platelet Count 177 10*3/uL (140-440); RBC 4.16 10*6/uL (4.10-5.20); RDW 12.2 % (11.5-14.5); WBC 5.08 10*3/uL (4.50-10.00)
[2025-05-12] MEDS: PEG 3350 (236 GM/BTL) + LYTES 4,000 ML BOTTLE PO ONE (09:56)
--- NOTE | 2025-05-12 11:17 | P.PN ---
Subjective Progress Note Date: 05/12/25 SURGICAL PROGRESS NOTE CHIEF COMPLAINT: GI bleed HISTORY OF PRESENT ILLNESS: Patient has had no further bleeding from the rectum. Patient was seen by urology regarding possible hematuria. They recommended GI workup, then a repeat UA. If patient continues to have microhematuria follow-up outpatient. Vital stable. Hemoglobin is up from 12.5-13.2 PHYSICAL EXAM: VITAL SIGNS: Reviewed. GENERAL: Well-developed in no acute distress. ABDOMEN: Soft. Nondistended. Nontender. NEUROLOGIC: Alert and oriented. Cranial nerves II through XII grossly intact. ASSESSMENT: 1. Acute lower GI bleed with bright red blood per rectum 2. History of colon polyps 3. Family history of colon cancer PLAN: - Patient scheduled for colonoscopy tomorrow with Dr. Lomas - Ciro bowel prep today - Clear liquid diet today - N.p.o. after midnight Physician Elementary Education Tutor note has been reviewed by physician. Signing provider agrees with the documented findings, assessment, and plan of care. Attestation Patient seen and examined at bedside. No additional blood per rectum. Will continue with plan for colonoscopy due to GI bleed as patient is requesting this. Clear liquid diet today. GoLytely bowel prep. N.p.o. after midnight. Urology recommendations appreciated. Nestor Lomas, Objective - Vital Signs Vital signs: Vital Signs Temp 97.7 F 05/12/25 08:00 Pulse 71 05/12/25 08:00 Resp 20 05/12/25 08:00 BP 151/88 05/12/25 08:00 Pulse Ox 98 05/12/25 08:00 FiO2 Intake & Output 05/11/25 05/12/25 05/12/25 18:59 06:59 18:59 Intake Total 1200 540 Balance 1200 540 Weight 47.627 kg 47.7 kg Intake: Oral 1200 540 Other: Voiding Method Toilet Toilet Toilet # Voids 1 2 - Labs CBC & Chem 7: 05/12/25 06:37 05/12/25 06:37 Labs: Abnormal Lab Results - Last 24 Hours (Table) 05/11/25 05/12/25 Range/Units 13:15 06:37 Chloride 112 H (98-107) mmol/L Carbon Dioxide 18 L (22-30) mmol/L BUN 4 L (7-17) mg/dL Creatinine 0.40 L (0.52-1.04) mg/dL Glucose 105 H (74-99) mg/dL Urine Ketones 2+ H (Negative) Urine Blood Moderate H (Negative) Urine RBC 10 H (0-5) /hpf Urine Bacteria Rare H (None) /hpf Urine Mucus Rare H (None) /hpf
[2025-05-12] MEDS: POTASSIUM CHLORIDE ER 20 MEQ TAB.ER PO SCH (22:05)
[2025-05-13 04:02] VITALS: RESP 18
[2025-05-13 07:40] LABS: HGB 13.4 g/dL (12.0-15.0); MCH 31.2 pg (27.0-32.0); MCHC 33.5 g/dL (32.0-37.0); MCV 93.2 fL (80.0-97.0); Mean Platelet Volume 9.3 fL (9.5-12.2); Platelet Count 191 10*3/uL (140-440); RBC 4.29 10*6/uL (4.10-5.20); RDW 12.2 % (11.5-14.5); WBC 4.26 10*3/uL (4.50-10.00)
[2025-05-13 08:01] LABS: African American GFR (CKD) >90 (>60 ml/min/1.73 sqM); Anion Gap 7 mmol/L; Blood Urea Nitrogen <2 mg/dL (7-17); Calcium 9.4 mg/dL (8.4-10.2); Carbon Dioxide 22 mmol/L (22-30); Chloride 111 mmol/L (98-107); Glucose 93 mg/dL (74-99); Magnesium 1.9 mg/dL (1.6-2.3); Non-African American GFR(CKD) >90 (>60 ml/min/1.73 sqM); Sodium 140 mmol/L (137-145)
[2025-05-13 09:47] VITALS: TEMP 98.1
[2025-05-13 11:34] VITALS: BP 126/86; PULSE 76
[2025-05-13] MEDS ORDERED: PROPOFOL 10 MG/ML 20 ML VIAL IV ONE (12:11)
[2025-05-13] MEDS: IV FLUID CONTINUATION 1,000 ML IV ONE (12:18)
--- NOTE | 2025-05-13 12:27 | P.PCN ---
Date of Procedure: 05/13/25 Preoperative Diagnosis: GI bleed Postoperative Diagnosis: Diverticulosis Internal hemorrhoid Procedure(s) Performed: Colonoscopy Anesthesia: MAC Surgeon: Nestor Lomas Pathology: none sent Condition: stable Disposition: floor Indications for Procedure: 64-year-old female presented to emergency department with concern for GI bleed. Surgery consulted secondary to this purpose. She has history of large polyps in the past. She has family history of colon cancer. Plan is for colonoscopy for evaluation of GI bleed. Risks, benefits and alternatives provided to the patient. All questions answered. Operative Findings: Diverticulosis Internal hemorrhoids Description of Procedure: The patient was brought to the endoscopy suite and placed in left lateral decubitus position and adequate sedation was achieved using conscious sedation. Digital rectal exam was performed and mild internal hemorrhoids were palpated. An endoscope was then placed in the rectum and advanced to the cecum as identified by landmarks including the appendiceal orifice and the ileocecal valve. The prep was good. The colonoscope was then slowly withdrawn, examining for any mucosal abnormalities. The cecum, ascending, transverse, descending and sigmoid colon were visualized adequately. There were no large neoplastic lesions noted throughout the colon. No obvious polyps noted throughout the colon. Diverticulosis noted. Hemostasis was maintained. Retroflexion was performed in the rectum and internal hemorrhoids. Excess air was removed, the colonoscope withdrawn and the procedure terminated. The patient was then transferred to the recovery unit in stable condition. Repeat colonoscopy should be performed in 5 years.
--- NOTE | 2025-05-13 13:57 | P.PN ---
Subjective Progress Note Date: 05/12/25 Maintained on clear liquid diet with prep starting later this afternoon as per general surgery for colonoscopy tomorrow. Lightheadedness and dizziness improving. Denies further rectal bleeding. Hemoglobin 13.2. denies chest pain, palpitations or shortness of breath. Evaluated by urology, recommendations noted and appreciated. Objective - Vital Signs Vital signs: Vital Signs Temp 97.8 F 05/12/25 12:00 Pulse 75 05/12/25 12:00 Resp 18 05/12/25 12:00 BP 138/80 05/12/25 12:00 Pulse Ox 98 05/12/25 08:00 FiO2 Intake & Output 05/11/25 05/12/25 05/12/25 18:59 06:59 18:59 Intake Total 1200 540 Balance 1200 540 Weight 47.627 kg 47.7 kg Intake: Oral 1200 540 Other: Voiding Method Toilet Toilet Toilet # Voids 1 2 - Exam PHYSICAL EXAM: VITAL SIGNS: [Reviewed] GENERAL: Alert and oriented x 3, sitting up in bed, no acute distress HEENT: Atraumatic, normocephalic ,conjunctivae normal. eyes normal. mmm. NECK: Supple, no JVD. CARDIOVASCULAR: S1, S2 regular. No murmur RESPIRATION: Unlabored, equal air entry, clear to auscultation with bilateral bases diminished. ABDOMEN: Soft, nondistended, nontender . No guarding. no masses palpable. Positive bowel sound LEGS: No edema. no swelling. No calf tenderness, peripheral pulses intact. NERVOUS SYSTEM: Cranial N 2-12 grossly normal. No focal deficits. Strength and sensation grossly intact. Skin: Warm and dry, no rash. - Labs CBC & Chem 7: 05/13/25 07:16 05/13/25 07:16 Labs: Abnormal Lab Results - Last 24 Hours (Table) 05/11/25 05/12/25 Range/Units 13:15 06:37 Chloride 112 H (98-107) mmol/L Carbon Dioxide 18 L (22-30) mmol/L BUN 4 L (7-17) mg/dL Creatinine 0.40 L (0.52-1.04) mg/dL Glucose 105 H (74-99) mg/dL Urine Ketones 2+ H (Negative) Urine Blood Moderate H (Negative) Urine RBC 10 H (0-5) /hpf Urine Bacteria Rare H (None) /hpf Urine Mucus Rare H (None) /hpf Assessment and Plan Assessment: Acute lower GI bleed Symptomatic hemodynamic instability with lightheadedness, dizziness accompanying rectal bleeding, improving. Possible microhematuria, repeat UA with formal microhematuria evaluation with urology op if persistent microhematuria noted. Daily alcohol use, 1 can of beer q. night History of colon polyps Nicotine dependence Plan: Continue on current medication regime ,monitoring and symptomatic treatment. Clear liquid diet today with prep later this afternoon as per general surgery for colonoscopy tomorrow .continue close monitoring of hemoglobin repeat labs ordered for a.m. maintain PPI. Smoking cessation, alcohol abstinence reinforced. Nicotine patch ordered. Discharge planning in progress for tomorrow pending colonoscopy results. The impression and plan of care has been dictated as directed. : I performed a history and examination of this patient, discussed the same with the dictator. I agree with the dictator's note ,documented as a scribe. Any additional findings or plans will be noted.
--- NOTE | 2025-05-13 14:03 | P.DS ---
Providers Date of admission: 05/10/25 16:40 Expected date of discharge: 05/13/25 Attending physician: Gerson Galdamez Consults: 05/10/25 16:37 Consult Physician Stat Consulting Provider: Nestor Lomas Consult Reason/Comments: Hematochezia, GI bleed Do you want consulting provider notified?: Yes, Notify in am 05/11/25 13:14 Consult Physician Routine Consulting Provider: Kaiden Lopez Consult Reason/Comments: possible hematuria Do you want consulting provider notified?: Yes Primary care physician: Gerson Galdamez Hospital Course: Final Diagnoses: Acute lower GI bleed, status post colonoscopy reporting diverticulosis, internal hemorrhoids. Symptomatic hemodynamic instability with lightheadedness, dizziness accompanying rectal bleeding, resolved Possible microhematuria, repeat UA with formal microhematuria evaluation with urology op if persistent microhematuria noted. Daily alcohol use, 1 can of beer q. night History of colon polyps Nicotine dependence Hospital course:This is a 64-year-old female with past medical history significant for lifelong constipation , family history of colon cancer including her mother,nicotine dependence, daily alcohol use-1 can of Alex beer light at night and multiple other medical issues presented to the ER with cramping abdominal pain, bright red rectal bleeding with blood clots accompanied by nausea, vomiting .lightheadedness, dizziness since early yesterday morning at 230. Denies hemoptysis or hematemesis. Denies NSAID use but does report she did have 2 ibuprofen 200 mg yesterday for the abdominal cramping. Proceeded to have another bloody bowel movement this morning in the ER. on admission hemoglobin 14, decreased to 12.5. Reports multiple colonoscopies last -2021 with polyps- refer to [facility] for removal of. Reports she normally has a bowel movement twice a week; over the last week she has been having 1 daily. KUB unremarkable .stool for occult blood negative. Lactic acid 1.1, electrolytes and renal f unction stable. Receiving IV fluid hydration. Evaluated by general surgery and patient is scheduled for colonoscopy on , 05/13/2025. Maintained on clear liquid diet with prep starting later this afternoon as per general surgery for colonoscopy tomorrow. Lightheadedness and dizziness improving. Denies further rectal bleeding. Hemoglobin 13.2. denies chest pain, palpitations or shortness of breath. Evaluated by urology, recommendations noted and appreciated. Completed colonoscopy, reporting diverticulosis, internal hemorrhoids. Tolerated procedure well. Patient will be discharged home today in a stable condition with guarded prognosis pending general surgery's final DC recommendations and clearance. Denies lightheadedness dizziness or focal deficits. Denies chest pain, palpitations or shortness of breath. Hemoglobin 13.4. The impression and plan of care has been dictated as directed. : I performed a history and examination of this patient, discussed the same with the dictator. I agree with the dictator's note ,documented as a scribe. Any additional findings or plans will be noted. Patient Condition at Discharge: Stable Plan - Discharge Summary New Discharge Prescriptions: New Fluticasone Nasal [place] [Flonase Nasal [place]] 2 spray EA NOSTRIL DAILY ml Nicotine 14Mg/24Hr Patch [Habitrol] 1 patch TRANSDERM DAILY #30 patch Discharge Medication List Fluticasone Nasal [place] [Flonase Nasal [place]] 2 spray EA NOSTRIL DAILY ml 05/13/25 [Rx] Nicotine 14Mg/24Hr Patch [Habitrol] 1 patch TRANSDERM DAILY #30 patch 05/13/25 [Rx] Follow up Appointment(s)/Referral(s): Gerson Galdamez DO [Primary Care Provider] - 1 Week Patient Instructions/Handouts: Gastrointestinal Bleeding (ED)
== END 2025-05-13 14:53 | disposition home or self-care (01) ==
LOC: EC 12:17 → 6NMEDSUR 16:40 → 3SCARD 05-11 09:38
PROVIDERS: ADMIT Family Medicine; ATTEND Family Medicine
DX: K62.5 Hemorrhage of anus and rectum (principal); K57.30 Diverticulosis of large intestine without perforation or abscess without bleeding; K64.8 Other hemorrhoids; K59.00 Constipation, unspecified; F17.200 Nicotine dependence, unspecified, uncomplicated; Z86.0100 Personal history of colon polyps, unspecified; Z80.0 Family history of malignant neoplasm of digestive organs; Z88.0 Allergy status to penicillin
CPT/HCPCS: 96376 ×2; 96374; 96375; 99285; 36415; 80053; 80048 ×2; 83605; 83690; 83735; 85025 ×2; 85027 ×2; 85610; 85730; 82272; 81001; 74018; 45378; G0378 ×5; S4990 ×3; J2270; J2704; J2470 ×3